=== PATIENT | female | born 1975 | race Caucasian/White ===

== ENCOUNTER 2020-04-02 03:52 | Emergency (ER) | payer BC, SELFPAY ==
--- NOTE | ~2020-04-02 | CT_ITS ---
EXAMINATION: CT thoracic lumbar w con DATE: 04/02/2020 07:21 INDICATION: Back pain. Fever. TECHNIQUE: Computed tomography (CT) of the thoracic and lumbar spine was performed with 100 mL Omnipa que 350 intravenous contrast. Automated exposure control and iterative reconstruction technique were employed. The dose-length product was 1963.22 mGy-cm. COMPARISON: None FINDINGS: CT THORACIC SPINE: A calcified right lung nodule and calcified right hilar and mediastinal lymph node s are consistent with old granulomatous disease. There is mediastinal lymphadenopathy. There is 12 de grees dextroscoliosis of thoracic spine. There is mild chronic anterior wedging of T4 and T5 vertebra l bodies. There is severely decreased disc height at T3-T4, moderately decreased disc height at T4-T5 , T5-T6, T6-T7, and T9-T10, and mildly decreased disc height at other levels. There is multilevel fac et joint osteoarthritis, severe bilaterally at T2-T3 and T3-T4. On the right, there is mild neural fo raminal stenosis at T2-T3 and moderate neural foraminal stenosis at T3-T4. On the left, there is mode rate neural foraminal stenosis at T2-T3. There is mild central canal stenosis at T6-T7. CT LUMBAR SPINE: There is 13 degrees levoscoliosis of lumbar spine. L5 is a transitional segment. Dante tebral body heights are normal. There is mildly decreased disc height at L4-L5. The following disc le vels are specifically discussed: L1-L2: The disc does not extend beyond the endplate margin. There is moderate bilateral facet joint o steoarthritis. There is no neural foraminal stenosis. There is no central canal stenosis. L2-L3: The disc is bulging. There is moderate bilateral facet joint osteoarthritis. There is mild lef t neural foraminal stenosis. There is mild central canal stenosis. L3-L4: The disc is bulging. There is moderate bilateral facet joint osteoarthritis. There is mild lef t neural foraminal stenosis. There is mild central canal stenosis. L4-L5: The disc is bulging. There is mild right and severe left facet joint osteoarthritis. There is mild right and moderate left neural foraminal stenosis. There is mild central canal stenosis. L5-S1: The disc does not extend beyond the endplate margin. There is mild bilateral facet joint osteo arthritis. There is mild bilateral neural foraminal stenosis. There is no central canal stenosis. IMPRESSION: 1. Moderate thoracic and lumbar spondylosis. 2. Scoliosis. 3. Mediastinal lymphadenopathy, which may be reactive or metastatic disease. Reviewed, dictated and finalized at location [facility].
--- NOTE | ~2020-04-02 | CT_ITS ---
EXAMINATION: CTA chest PE protocol DATE: 04/02/2020 07:15 INDICATION: Chest pain, back pain, fever TECHNIQUE: Computed tomography angiography (CTA) of the chest was performed with 100 mL Omnipaque-350 intravenous contrast timed to evaluate the pulmonary arteries. Coronal maximum intensity projection 3D-reconstructions were created by the technologist. Automated exposure control and iterative reconst ruction technique were employed. Exam dose: 980.42 mGy-cm total exam DLP. COMPARISON: None. FINDINGS: There is moderate contrast enhancement of the pulmonary arteries and no evidence of central , lobar or segmental pulmonary embolism. The more peripheral pulmonary arteries are not optimally dem onstrated. There is streak artifact from the contrast bolus. There is cardiomegaly. There is no pericardial effusion. No thoracic aortic aneurysm or dissection. No hilar or mediastinal mass lesion or lymphadenopathy. There are calcified right hilar and subcarinal nodes and calcified right lower lobe pulmonary granulo ma, consistent with old pulmonary granulomatous disease. There is mild atelectasis involving the middle and both lower lobes. Incidentally noted is cholelithiasis. Included skeletal structures are unremarkable. IMPRESSION: No evidence of pulmonary embolism Mild atelectasis at middle and both lower lobes Cholelithiasis Reviewed, dictated and finalized at [facility]. Reviewed, dictated and finalized at location [facility].
--- NOTE | ~2020-04-02 | CT_ITS ---
EXAMINATION: CT cervical spine wo con DATE: 04/02/2020 07:15 INDICATION: Back pain. TECHNIQUE: Computed tomography (CT) of the cervical spine was performed without intravenous contrast. Automated exposure control and iterative reconstruction technique were employed. The dose-length pro duct was 474.05 mGy-cm. COMPARISON: None FINDINGS: There is 8 degrees dextrocurvature of cervical spine. Vertebral body heights and interverte bral disc heights are normal. The following disc levels are specifically discussed: C2-C3: There is mild right uncovertebral joint osteoarthritis. There is no facet joint osteoarthritis . There is no neural foraminal stenosis. There is no central canal stenosis. C3-C4: There is mild left uncovertebral joint osteoarthritis. There is no facet joint osteoarthritis. There is no neural foraminal stenosis. There is no central canal stenosis. C4-C5: There is moderate right and mild left uncovertebral joint osteoarthritis. There is no facet jarrod int osteoarthritis. There is mild bilateral neural foraminal stenosis. There is no central canal sten osis. C5-C6: There is mild bilateral uncovertebral joint osteoarthritis. There is no facet joint osteoarthr itis. There is mild right neural foraminal stenosis. There is no central canal stenosis. C6-C7: There is no uncovertebral joint osteoarthritis. There is no facet joint osteoarthritis. There is no neural foraminal stenosis. There is no central canal stenosis. C7-T1: There is no uncovertebral joint osteoarthritis. There is severe bilateral facet joint osteoart hritis. There is mild bilateral neural foraminal stenosis. There is no central canal stenosis. IMPRESSION: 1. Mild cervical spondylosis. Reviewed, dictated and finalized at location [facility].
[2020-04-02 03:55] VITALS: BP 138/91; PULSE 108; RESP 18; TEMP 37.2; O2SAT 100
--- NOTE | 2020-04-02 04:05 | ED.BACK ---
HPI - Back Pain/Injury General Chief Complaint: Back Pain/Injury <Tamica Wright MD - Last Filed: 04/02/20 08:59> Stated Complaint: back pain <Tamica Wright MD - Last Filed: 04/02/20 08:59> Time Seen by Provider: 04/02/20 04:04 <Tamica Wright MD - Last Filed: 04/02/20 08:59> Source: patient <Tamica Wright MD - Last Filed: 04/02/20 08:59> Mode of arrival: ambulatory <Tamica Wright MD - Last Filed: 04/02/20 08:59> Limitations: no limitations <Tamica Wright MD - Last Filed: 04/02/20 08:59> History of Present Illness HPI Narrative: Patient is a 44-year-old female with a history of scoliosis who presents for evaluation of fever, chest pain, back pain. Patient reports that she had a 100.4 degree fever yesterday, has been experiencing upper back pain and chest pain over the past 48 hours. Patient has been unable to sleep due to the pain. She reports a dull, aching sensation over the chest, and upper back pain which is throbbing, aching in nature. She denies lower back pain. No difficulty with ambulation. No difficulty with bowel or bladder function. She denies numbness or weakness in the upper or lower extremities. No fever today. She denies cough, shortness of breath, she does have a history of palpitations but states she has not felt any palpitations today. No recent heavy lifting, falls or injuries. No recent sick contacts. Patient has been taking in anti-inflammatories and muscle relaxers at home without improvement in her symptoms. <Tamica Wright MD - Last Filed: 04/02/20 08:59> Related Data Allergies/Adverse Reactions: Allergies Allergy/AdvReac Type Severity Reaction Status Date / Time No Known Allergies Allergy Verified 04/02/20 08:21 <Tamica Wright MD - Last Filed: 04/02/20 08:59> Review of Systems Review of Systems: Narrative: CONSTITUTIONAL: Denies fever, chills, or sweats. ENT: Denies rhinorrhea, congestion, sore throat, or otalgia. CARDIOVASCULAR: Reports chest pain RESPIRATORY: Denies cough or dyspnea. GASTROINTESTINAL: Denies abdominal pain, nausea, vomiting, or diarrhea. GENITOURINARY: Denies dysuria or hematuria. SKIN: Denies rash or itching. MUSCULOSKELETAL: Reports back pain, shoulder myalgias NEUROLOGIC: Denies headache, numbness, or weakness. <Tamica Wright MD - Last Filed: 04/02/20 08:59> [facility] Past Medical History Medical History: Medical History Palpitations Scoliosis <Tamica Wright MD - Last Filed: 04/02/20 08:59> Social History Social History: Social History (Updated 04/02/20 @ 04:36 by Tamica Wright MD) Smoking status: Current every day smoker Tobacco type: cigarettes Alcohol intake: never Substance use: never Living arrangements: with family Gender identity (if verbalized by the patient): Female <Tamica Wright MD - Last Filed: 04/02/20 08:59> Exam Narrative: Exam Narrative: GENERAL: Awake, alert, conversant HEAD: Normocephalic, atraumatic. EYES: PERRLA and EOMI. ENT: Nares clear, no rhinorrhea or epistaxis. Mucous membranes moist. NECK: Supple. No midline cervical tenderness. Thorax: Left-sided paraspinal thoracic tenderness, no ecchymoses, no vesicles CHEST: No respiratory distress, breathing even and non labored, mild chest wall tenderness HEART: Regular rate, sinus rhythm ABDOMEN:Non distended, non tender EXTREMITIES: Normal range of motion. No edema. SKIN: Warm, dry, no rash. NEURO:No focal deficits. Alert and oriented x3 <Tamica Wright MD - Last Filed: 04/02/20 08:59> Course Reevaluation(s) Reevaluation #1: Reviewed CT results. Discussed with patient about her lab and CT results. Advised patient to have additional labs including repeat Troponin and inflammatory markers. Patient does not want to do any further tests, including additional labs and further imaging. She wants to leave and follo
--- NOTE | 2020-04-02 04:31 | ECG_ITS ---
Measurements Intervals [place] Rate: 99 P: 4 OR: 159 QRS: 10 QRSD: 88 T: 23 QT: 319 QTc: 409 Interpretive Statements SINUS RHYTHM LOW QRS VOLTAGE IN PRECORDIAL LEADS BASELINE ARTIFACT- V3 BORDERLINE ECG Electronically Signed On 04-02-2020 7:16:13 CDT by Pratik Hall D.O.
[2020-04-02] MEDS: ASPIRIN 81 MG CHEWABLE TABLET 324 MG PO (04:43)
[2020-04-02] MEDS: diazePAM (*CRX) 5 MG TABLET 2.5 MG PO (04:44)
[2020-04-02] MEDS: oxyCODONE/ACETAMINOPHEN (*CRX) 5-325 MG TABLET 1 TABLET PO (04:45)
[2020-04-02 05:20] LABS: Basophils Percent Auto 0.1 % (0.2-1.2); Eosinophils Absolute Auto 0.1 K/mm3 (0-0.3); Eosinophils Percent Auto 0.4 % (0-4.4); Hematocrit 41.4 % (37.0-47.0); Hemoglobin 13.8 g/dL (12.0-15.0); Immature Granulocyte Absolute 0.07 K/mm3 (0.00-0.031); Immature Granulocyte Percent A 0.5 % (0-0.5); Lymphocytes Absolute Auto 2.16 K/mm3 (0.9-3.2); Lymphocytes Percent Auto 14.5 % (18.3-44.2); Mean Corpuscular HGB Conc 33.3 g/dl (32-36); Mean Corpuscular Hemoglobin 30.7 pg (26-34); Mean Corpuscular Volume 92.2 fl (80-100); Monocytes Absolute Auto 1.2 K/mm3 (0.1-0.6); Neutrophils Absolute Auto 11.4 K/mm3 (1.3-6.7); Neutrophils Percent Auto 76.5 % (45.5-73.1); Platelet Count Result 268 k/mm3 (150-375); Red Blood Count 4.49 M/mm3 (4.2-5.4); Red Cell Distribution Width 13.7 % (11.5-14.5); White Blood Count 14.9 K/mm3 (4.5-10.0)
[2020-04-02 05:34] LABS: Anion Gap 9 mmol/L (8-16); Blood Urea Nitrogen 10 mg/dL (7-17); Calcium 9.7 mg/dL (8.4-10.2); Carbon Dioxide 24 mmol/L (22-30); Chloride 105 mmol/L (98-107); Estimated CRCL calculation 102 ml/min; Estimated Glomerular Filt Rate > 60; Glucose 132 mg/dL (65-105); Potassium 4.1 mmol/L (3.4-5.0); Sodium 138 mmol/L (137-145)
[2020-04-02 05:39] LABS: D Dimer 1.31 ug/mL (<0.48)
[2020-04-02 05:45] LABS: INR 1.1; Prothrombin Time 13.7 Seconds (11.1-14.7); Troponin I < 0.012 ng/mL (0.000-0.034)
[2020-04-02 05:46] LABS: Partial Thromboplastin Time 27.8 SECONDS (22.3-36.8)
[2020-04-02 09:33] VITALS: BP 126/78; PULSE 97; RESP 18; O2SAT 100
== END 2020-04-02 09:34 | disposition home or self-care (01) ==
PROVIDERS: Emergency Provider Emergency Medicine; PCP Emergency Medicine
DX: M62.830 Muscle spasm of back (principal); M54.6 Pain in thoracic spine; M41.9 Scoliosis, unspecified; F17.210 Nicotine dependence, cigarettes, uncomplicated; K80.20 Calculus of gallbladder without cholecystitis without obstruction; R94.31 Abnormal electrocardiogram [ECG] [EKG]
CPT/HCPCS: 36415; 71275; 72125; 72129; 72132; 80048; 81025; 84484; 85025; 85055; 85380; 85610; 85730; 93005; 99284; A9270; Q9967

== ENCOUNTER 2024-04-03 09:16 | Outpatient (CLI) | payer BC, SELFPAY ==
--- NOTE | ~2024-04-03 | MR_ITS ---
MRI of the left knee Clinical history: Pain Technique: Coronal proton density and proton density-weighted images, sagittal proton-density and T2 fat-sat images, and axial proton-density fat-saturated images were acquired. Findings: Anterior and posterior cruciate ligament are intact. Medial collateral ligament and the lat eral collateral ligament conflux are intact. Popliteus tendon intact. Medial and lateral menisci are intact, without evidence of tear. There is high-grade chondromalacia at the patellar apex and medial facet. There is patchy moderate to high-grade chondromalacia the femoral trochlea. There is moderate to high-grade chondromalacia of th e medial femoral condyle towards the joint line. Small tricompartmental osteophytes are present. Extensor mechanism is intact. No significant joint effusion or Amaro's cyst. Impression: [id number] tricompartmental degenerative change, as detailed above. Reviewed, dictated and finalized at [facility]. Impression: [id number] tricompartmental degenerative change, as detailed above.
== END 2024-04-03 09:17 | disposition home or self-care (01) ==
LOC: GOSHIMG 09:16
PROVIDERS: PCP Emergency Medicine; Visit Provider Orthopaedic Surgery
DX: M17.12 Unilateral primary osteoarthritis, left knee (principal)
CPT/HCPCS: 73721

== ENCOUNTER 2025-01-09 12:31 | Emergency (ER) | payer SELFPAY ==
[2025-01-09] VITALS (7 sets, daily range): BP systolic 122–160; BP diastolic 86–99; PULSE 90–112; RESP 16–20; TEMP 36.4; O2SAT 98–100
--- NOTE | ~2025-01-09 | CT_ITS ---
EXAMINATION: CTA chest PE protocol DATE: 01/09/2025 17:13 CDT INDICATION: Elevated d-dimer and tachycardia. TECHNIQUE: Computed tomographic angiography (CTA) of the chest was performed with 100 mL Omnipaque-35 0 intravenous contrast. The dose-length product was 856.74 mGy-cm. Maximum intensity projection 3D-re constructions of the aorta and other arteries were constructed by the technologist on a separate work station. COMPARISON: 04/02/2020 FINDINGS/OBSERVATIONS: PULMONARY ARTERIES: No filling defect is identified within the main or proximal pulmonary artery. The main pulmonary artery is not enlarged. THORACIC AORTA: No aneurysmal dilatation or dissection is present. The great vessels are intact LUNGS: 11 mm calcified nodule within the right lower lobe. The remainder the lungs are clear. MEDIASTINUM: No morphologically suspicious or pathologically enlarged lymph nodes are identified with in the mediastinum or bilateral axilla. Multiple morphologically benign appearing lymph nodes are identified within the retropectoral region bilaterally as well as the bilateral axilla, left greater than right. BONES OF THE CHEST: No acute fracture. No significant degenerative disease. No lytic or blastic lesions. HEART: The heart is of normal size, without pericardial effusion. IMPRESSION: No pulmonary embolus. No thoracic aortic dissection. Findings suggesting prior granulomatous disease. The lungs are otherwise clear. Reviewed, dictated and finalized at location A.
--- NOTE | ~2025-01-09 | US_ITS ---
EXAMINATION: US venous doppler LE RT DATE: 01/09/2025 16:22 INDICATION: Right leg pain TECHNIQUE: Grayscale ultrasound images without and with compression and Doppler ultrasound images of the right lower extremity veins were obtained. COMPARISON: None. FINDINGS: The visualized portions of right common femoral vein, profunda (deep) femoral vein, femoral vein, pop liteal vein, peroneal veins and posterior tibial veins are patent. Noncompressibility and limited flow are identified within the right greater saphenous vein located ap proximately 5 mm shy of the common femoral vein confluence. At the level of the popliteal vein, the right greater saphenous vein and demonstrates markedly thicke fabián haley suggesting possible acute on chronic thrombosis, for which clinical correlation with patien t's history is needed. IMPRESSION: Noncompressibility and limited flow within the right greater saphenous vein 5 mm away from the saphen ofemoral junction. These findings were discussed with Dr. Marshall at 4:30 PM on 01/09/2025 Reviewed, dictated and finalized at location A. IMPRESSION: Noncompressibility and limited flow within the right greater saphenous vein 5 m m away from the saphenofemoral junction. These findings were discussed with Dr. Marshall at 4:30 PM on 01/09/2025
--- OUTSIDE RECORDS SUMMARY | 2025-01-09 12:34 | XMS_ITS | Encounter Summary ---
Author Organization [facility] Address [address] [place] [address] Care Team Providers Care Bell Cleaner Name Role Phone Jennifer Mosquera NP Primary Care Provider [phone] Camron Cherry MD Primary Care Provider [phone] Encounter Details Date Type Department Care Team (Late st Contact Info) Description 08/07/2023 CBA PHARMA Message Enc [facility] Medical Group Family Medicine [facility] [address] [facility] [address] [place] [address] Jennifer Mosquera NP [address] [place] [address] Ct results Social History Tobacco Use Types Packs/Day Years Used Date Smoking Tobacco: Every Day Cigarettes 1 20 Passive Smoke Exposure: Never Smokeless Tobacco: Never Comments:PCP to deputy county counsel Alcohol Use Standard Drinks/Week Comments Yes 0 (1 standard drink = 0.6 oz pur e alcohol) socially PHQ-2 Answer Date Recorded Patient Health Questionnaire-2 Score 0 10/12/2022 Comments No Sex and Gender Information Value Date Recorded Sex Assigned at Female 10/21/2021 8:23 AM CDT Legal Sex Female 10:38 AM FIXTURE BUILDER Gender Identity Female 10/21/2021 8:23 AM CDT Sexual Orientation Straight 10/21/2021 8: 23 AM CDT documented as of this encounter Plan of Treatment Not on file documented as of this encounter Visit Diagnoses Not on filedocumented in this encounter Additional Health Concerns Infection Onset Date Last Indicated Resolved Time COVID-19 Rule Out 06/25/2024 06/25/202406/2506/25/2024 8:55 AM FIXTURE BUILDER documented as of this encounter Care Teams Bell Cleaner Relationship Specialty Start Date End Date Jennifer Mosquera NP [address] [place] [address] PCP - General NURSE PRACTITIONER 02/04/21 01/24/24 Camron Cherry MD [address] [place] [address] PCP - General 01/25/24 02/15/25 documented as of this encounter
--- OUTSIDE RECORDS SUMMARY | 2025-01-09 12:34 | XMS_ITS | Encounter Summary ---
Author Organization [facility] Address [address] [place] [address] Care Team Providers Care Character Impersonator Name Role Phone Camron Cherry MD Primary Care Provider [phone] Encounter Details Date Type Department Care Team (Late st Contact Info) Description 12/16/2024 Results Follow-Up [facility] Medical [facility] Family Medicine - [place] [phone] Camron Cherry MD [address] [place] [id number] [facility] DUP[facility] LOW EXT RT Social History Tobacco Use Types Packs/Day Years Used Date Smoking Tobacco: Every Day Cigarettes 1 20 Started: 1995 Passive Smoke Exposure: Never Smokeless Tobacco: Never Comments:PCP to mortgage loan counselor Alcohol Use Standard Drinks/Week Comments Yes 0 (1 standard drink = 0.6 oz pur e alcohol) socially PHQ-2 Answer Date Recorded Patient Health Questionnaire-2 Score 0 06/25/2024 Comments No Sex and Gender Information Value Date Recorded Sex Assigned at Female 10/21/2021 8:23 AM CDT Legal Sex Female 10:38 AM TUBE MAN Gender Identity Female 10/21/2021 8:23 AM CDT Sexual Orientation Straight 10/21/2021 8: 23 AM CDT documented as of this encounter Plan of Treatment Not on file documented as of this encounter Visit Diagnoses Not on filedocumented in this encounter Care Teams Character Impersonator Relationship Specialty Start Date End Date Camron Cherry MD [address] [place] [id number] PCP - General 01/25/24 02/15/25 documented as of this encounter
--- OUTSIDE RECORDS SUMMARY | 2025-01-09 12:34 | XMS_ITS | Encounter Summary ---
Author Organization [facility] Address [address] [place] [address] Care Team Providers Care Quote Clerk Name Role Phone Jennifer Mosquera NP Primary Care Provider [phone] Camron Cherry MD Primary Care Provider Encounter Details Date Type Department Care Team (Late st Contact Info) Description 10/13/2023 Payfirma Message Enc [facility] Medical Group Family Medicine [address] [address] [place] Provider Breast Screening Social History Tobacco Use Types Packs/Day Years Used Date Smoking Tobacco: Every Day Cigarettes 1 20 Passive Smoke Exposure: Never Smokeless Tobacco: Never Comments:PCP to food counselor Alcohol Use Standard Drinks/Week Comments Yes 0 (1 standard drink = 0.6 oz pur e alcohol) socially PHQ-2 Answer Date Recorded Patient Health Questionnaire-2 Score 0 10/12/2022 Comments No Sex and Gender Information Value Date Recorded Sex Assigned at Female 10/21/2021 8:23 AM CDT Legal Sex Female 10:38 AM MAGAZINE FEEDER Gender Identity Female 10/21/2021 8:23 AM CDT Sexual Orientation Straight 10/21/2021 8: 23 AM CDT documented as of this encounter Plan of Treatment Not on file documented as of this encounter Visit Diagnoses Not on filedocumented in this encounter Additional Health Concerns Infection Onset Date Last Indicated Resolved Time COVID-19 Rule Out 06/25/2024 06/25/2024 06/25/2024 8:55 AM MAGAZINE FEEDER documented as of this encounter Care Teams Quote Clerk Relationship Specialty Start Date End Date Jennifer Mosquera NP [address] [place] [address] PCP - General NURSE PRACTITIONER 02/04/21 01/24/24 Camron Cherry MD [address] [place] [address] PCP - General 01/25/24 02/15/25 documented as of this encounter
--- OUTSIDE RECORDS SUMMARY | 2025-01-09 12:34 | XMS_ITS | Encounter Summary ---
Author Organization [facility] Address [address] [place] [address] Care Team Providers Care Supervisor Melt House Name Role Phone Jennifer Mosquera NP Primary Care Provider [phone] Camron Cherry MD Primary Care Provider [phone] Encounter Details Date Type Department Care Team (Late st Contact Info) Description 03/03/2022 [email or web address] Message Enc [facility] Medical Group Family Medicine [facility] [address] [facility] [address] [place] [address] Jennifer Mosquera NP [address] [facility] [address] [place] [address] Covid Social History Tobacco Use Types Packs/Day Years Used Date Smoking Tobacco: Every Day Cigarettes 1 20 Smokeless Tobacco: Never Comments:PCP to reimbursement counselor Alcohol Use Standard Drinks/Week Comments Yes 0 (1 standard drink = 0.6 oz pur e alcohol) socially PHQ-2 Answer Date Recorded PHQ-2 Score - If the patient scores above 3, please move on to questions 3-9 0 02/16/2022 Comments No Sex and Gender Information Value Date Recorded Sex Assigned at Female 10/21/2021 8:23 AM CDT Legal Sex Female 10:38 AM MAIN GALLEY SCULLION Gender Identity Female 10/21/2021 8:23 AM CDT Sexual Orientation Straight 10/21/2021 8: 23 AM CDT COVID-19 Exposure Response Date Recorded In the last 10 days, have yo u been in contact with someone who was confirmed or suspected to have Coronavirus/COVID-19? No / Unsure 02/16/2022 9:29 AM CDT documented as of this encounter Plan of Treatment Not on file documented as of this encounter Visit Diagnoses Not on filedocumented in this encounter Additional Health Concerns Infection Onset Date Last Indicated Resolved Time COVID-19 Rule Out 06/25/2024 06/25/2024 06/25/2024 8:55 AM MAIN GALLEY SCULLION documented as of this encounter Care Teams Supervisor Melt House Relationship Specialty Start Date End Date Jennifer Mosquera NP [address] [place] [address] PCP - General NURSE PRACTITIONER 02/04/21 01/24/24 Camron Cherry MD [address] [place] [address] PCP - General 01/25/24 02/15/25 documented as of this encounter
--- OUTSIDE RECORDS SUMMARY | 2025-01-09 12:34 | XMS_ITS | Encounter Summary ---
Author Organization [facility] Address [address] [place] [address] Care Team Providers Care Job Development Specialist Name Role Phone Rudy Sutton MD Primary Care Provider Jennifer Li NP Primary Care Provider [phone] Camron Cherry MD Primary Care Provider [phone] Encounter Details Date Type Department Care Team (Late st Contact Info) Description 08/30/2020 [employer] Message Enc [facility] Medical Group Family Medicine [address] [address] Rudy Sutton MD RE: Question Social History Tobacco Use Types Packs/Day Years Used Date Smoking Tobacco: Every Day Cigarettes 0.5 15 Smokeless Tobacco: Never Alcohol Use Standard Drinks/Week Comments Never 0 (1 standard drink = 0.6 oz pur e alcohol) Comments Unknown Sex and Gender Information Value Date Recorded Sex Assigned at Female 10/21/2021 8:23 AM CDT Legal Sex Female 10:38 AM SUPERVISOR AGRICULTURAL EDUCATION Gender Identity Female 10/21/2021 8:23 AM CDT Sexual Orientation Straight 10/21/2021 8: 23 AM CDT COVID-19 Exposure Response Date Recorded In the last month, have you been in contact with someone who was confirmed or suspected to have Coronavirus / COVID-19? No / Unsure 08/10/2020 10:18 AM SUPERVISOR AGRICULTURAL EDUCATION documented as of this encounter Plan of Treatment Not on file documented as of this encounter Visit Diagnoses Not on filedocumented in this encounter Additional Health Concerns Infection Onset Date Last Indicated Resolved Time COVID-19 Rule Out 06/25/2024 06/25/2024 06/25/2024 8:55 AM SUPERVISOR AGRICULTURAL EDUCATION documented as of this encounter Care Teams Job Development Specialist Relationship Specialty Start Date End Date Rudy Sutton MD PCP - General FAMILY MEDICINE SPORTS MEDICINE 06/29/20 02/03/21 Jennifer Mosquera NP [address] [place] [address] PCP - General NURSE PRACTITIONER 02/04/21 01/24/24 Camron Cherry MD [address] [place] [address] PCP - General 01/25/24 02/15/25 documented as of this encounter
--- OUTSIDE RECORDS SUMMARY | 2025-01-09 12:34 | XMS_ITS | Encounter Summary ---
Author Organization [facility] Address [address] [place] [address] Care Team Providers Care Animal Shelter Worker Name Role Phone Rudy Sutton MD Primary Care Provider Jennifer Li NP Primary Care Provider [phone] Camron Cherry MD Primary Care Provider [phone] Encounter Details Date Type Department Care Team (Late st Contact Info) Description 06/30/2020 [employer] Message Enc [facility] Medical Group Family Medicine [address] [address] Rudy Sutton MD RE: Follow Up/Update Social History Tobacco Use Types Packs/Day Years Used Date Smoking Tobacco: Every Day Cigarettes 0.5 15 Smokeless Tobacco: Never Alcohol Use Standard Drinks/Week Comments Never 0 (1 standard drink = 0.6 oz pur e alcohol) Comments Unknown Sex and Gender Information Value Date Recorded Sex Assigned at Female 10/21/2021 8:23 AM CDT Legal Sex Female 10:38 AM BELT LINE FEEDER Gender Identity Female 10/21/2021 8:23 AM CDT Sexual Orientation Straight 10/21/2021 8: 23 AM CDT COVID-19 Exposure Response Date Recorded In the last month, have you been in contact with someone who was confirmed or suspected to have Coronavirus / COVID-19? No / Unsure 06/29/2020 7:50 PM BELT LINE FEEDER documented as of this encounter Plan of Treatment Not on file documented as of this encounter Visit Diagnoses Not on filedocumented in this encounter Additional Health Concerns Infection Onset Date Last Indicated Resolved Time COVID-19 Rule Out 06/25/2024 06/25/202406/25/2024 8:55 AM BELT LINE FEEDER documented as of this encounter Care Teams Animal Shelter Worker Relationship Specialty Start Date End Date Rudy Sutton MD PCP - General FAMILY MEDICINE SPORTS MEDICINE 06/29/20 02/03/21 Jennifer Mosquera NP [address] [place] [address] PCP - General NURSE PRACTITIONER 02/04/21 01/24/24 Camron Cherry MD [address] [place] [address] PCP - General 01/25/24 02/15/25 documented as of this encounter
--- OUTSIDE RECORDS SUMMARY | 2025-01-09 12:34 | XMS_ITS | Encounter Summary ---
Author Organization [facility] Address [address] [place] [address] Care Team Providers Care Pool Servicer Name Role Phone Camron Cherry MD Primary Care Provider [phone] Encounter Details Date Type Department Care Team (Late st Contact Info) Description 10/21/2024 VUELOGIC Message Enc [facility] Family Medicine - [place] [address] [place] [address] [phone] Camron Cherry MD [address] [place] [address] [phone] Sickness Social History Tobacco Use Types Packs/Day Years Used Date Smoking Tobacco: Every Day Cigarettes 1 20 Started: 1994 Passive Smoke Exposure: Never Smokeless Tobacco: Never Comments:PCP to prevocational/rehabilitation counselor Alcohol Use Standard Drinks/Week Comments Yes 0 (1 standard drink = 0.6 oz pur e alcohol) socially PHQ-2 Answer Date Recorded Patient Health Questionnaire-2 Score 0 06/25/2024 Comments No Sex and Gender Information Value Date Recorded Sex Assigned at Female 10/21/2021 8:23 AM CDT Legal Sex Female 10:38 AM TRACE EVIDENCE TECHNICIAN Gender Identity Female 10/21/2021 8:23 AM CDT Sexual Orientation Straight 10/21/2021 8: 23 AM CDT documented as of this encounter Plan of Treatment Not on file documented as of this encounter Visit Diagnoses Not on filedocumented in this encounter Care Teams Pool Servicer Relationship Specialty Start Date End Date Camron Cherry MD [address] [place] [id number] PCP - General 01/25/24 02/15/25 documented as of this encounter
--- OUTSIDE RECORDS SUMMARY | 2025-01-09 12:34 | XMS_ITS | Encounter Summary ---
Author Organization [facility] Address [address] [place] [address] Care Team Providers Care Web Design Specialist Name Role Phone Jennifer Mosquera NP Primary Care Provider [phone] Camron Cherry MD Primary Care Provider [phone] Encounter Details Date Type Department Care Team (Late st Contact Info) Description 11/11/2021 [employer] Message Enc [facility] Family Medicine [facility] [address] [facility] [address] [place] [address] Jennifer Mosquera NP [address] [place] [address] Sickness Social History Tobacco Use Types Packs/Day Years Used Date Smoking Tobacco: Every Day Cigarettes 1 20 Smokeless Tobacco: Never Comments:PCP to children counselor Alcohol Use Standard Drinks/Week Comments Never 0 (1 standard drink = 0.6 oz pur e alcohol) PHQ-2 Answer Date Recorded PHQ-2 Score - If the patient scores above 3, please move on to questions 3-9 1 02/03/2021 Comments No Sex and Gender Information Value Date Recorded Sex Assigned at Female 10/21/2021 8:23 AM CDT Legal Sex Female 10:38 AM CERTIFIED OPHTHALMIC TECHNOLOGIST Gender Identity Female 10/21/2021 8:23 AM CDT Sexual Orientation Straight 10/21/2021 8: 23 AM CDT COVID-19 Exposure Response Date Recorded In the last 10 days, have yo u been in contact with someone who was confirmed or suspected to have Coronavirus/COVID-19? No / Unsure 11/11/2021 5:06 PM CDT documented as of this encounter Plan of Treatment Not on file documented as of this encounter Visit Diagnoses Not on filedocumented in this encounter Additional Health Concerns Infection Onset Date Last Indicated Resolved Time COVID-19 Rule Out 06/25/2024 06/25/2024 06/25/2024 8:55 AM CERTIFIED OPHTHALMIC TECHNOLOGIST documented as of this encounter Care Teams Web Design Specialist Relationship Specialty Start Date End Date Jennifer Mosquera NP [address] [place] [address] PCP - General NURSE PRACTITIONER 02/04/21 01/24/24 Camron Cherry MD [address] [place] [address] PCP - General 01/25/24 02/15/25 documented as of this encounter
--- OUTSIDE RECORDS SUMMARY | 2025-01-09 12:34 | XMS_ITS | Encounter Summary ---
Author Organization [facility] Address [address] [place] [address] Care Team Providers Care Mold Preparer Name Role Phone Camorn Cherry MD Primary Care Provider [phone] Encounter Details Date Type Department Care Team (Late st Contact Info) Description 07/22/2024 Loandesk Message [facility] Family Medicine - [place] [phone] Camron Cherry MD [address] [place] [address] [phone] Blood work Social History Tobacco Use Types Packs/Day Years Used Date Smoking Tobacco: Every Day Cigarettes 1 20 Started: 1994 Passive Smoke Exposure: Never Smokeless Tobacco: Never Comments:PCP to health counselor Alcohol Use Standard Drinks/Week Comments Yes 0 (1 standard drink = 0.6 oz pur e alcohol) socially PHQ-2 Answer Date Recorded Patient Health Questionnaire-2 Score 0 06/25/2024 Comments No Sex and Gender Information Value Date Recorded Sex Assigned at Female 10/21/2021 8:23 AM CDT Legal Sex Female 10:38 AM RENEWABLE ENERGY ENGINEER Gender Identity Female 10/21/2021 8:23 AM CDT Sexual Orientation Straight 10/21/2021 8: 23 AM CDT documented as of this encounter Progress Notes * Ashely Coker MA - 07/22/2024 1:17 PM CST Will you review patients' lab results please? WABLE ENERGY ENGINEER documented in this encounter Plan of Treatment Not on file documented as of this encounter Visit Diagnoses Not on filedocumented in this encounter Care Teams Mold Preparer Relationship Specialty Start Date End Date Camron Cherry MD [address] [place] [address] PCP - General 01/25/24 02/15/25 documented as of this encounter
--- OUTSIDE RECORDS SUMMARY | 2025-01-09 12:34 | XMS_ITS | Encounter Summary ---
Author Organization [facility] Address [address] [place] [address] Care Team Providers Care Waiter/Waitress First Class Name Role Phone Camron Cherry MD Primary Care Provider [phone] Encounter Details Date Type Department Care Team (Late st Contact Info) Description 02/21/2024 [employer] Message Enc [facility] Family Medicine - [place] [phone] Camron Cherry MD [address] [place] [address] [phone] Ortho referral Social History Tobacco Use Types Packs/Day Years Used Date Smoking Tobacco: Every Day Cigarettes 1 20 Started: 1994 Passive Smoke Exposure: Never Smokeless Tobacco: Never Comments:PCP to psychosocial rehabilitation counselor Alcohol Use Standard Drinks/Week Comments Yes 0 (1 standard drink = 0.6 oz pur e alcohol) socially PHQ-2 Answer Date Recorded Patient Health Questionnaire-2 Score 0 01/25/2024 Comments No Sex and Gender Information Value Date Recorded Sex Assigned at Female 10/21/2021 8:23 AM CDT Legal Sex Female 10:38 AM PHARMACOVIGILANCE SPECIALIST Gender Identity Female 10/21/2021 8:23 AM CDT Sexual Orientation Straight 10/21/2021 8: 23 AM CDT documented as of this encounter Plan of Treatment Not on file documented as of this encounter Visit Diagnoses Not on filedocumented in this encounter Additional Health Concerns Infection Onset Date Last Indicated Resolved Time COVID-19 Rule Out 06/25/2024 06/25/2024 06/25/2024 8:55 AM PHARMACOVIGILANCE SPECIALIST documented as of this encounter Care Teams Waiter/Waitress First Class Relationship Specialty Start Date End Date Camron Cherry MD [address] [place] [address] PCP - General 01/25/24 02/15/25 documented as of this encounter
--- OUTSIDE RECORDS SUMMARY | 2025-01-09 12:35 | XMS_ITS | Clinical Summary ---
Author Organization [facility] Address [address] [place] [address] Care Team Providers Care Welding Manager Name Role Phone Claude Pitts MD Primary Care Provider [phone] Allergies No known active allergies Medications tiZANidine (ZANAFLEX) 4 mg tablet Take 4 mg by mouth every 6 (six) hours as needed Active aspirin 81 mg enteric coated tablet Take 81 mg by mouth daily Active buPROPion SR (ZYBAN) 150 mg 12 hr tablet Take 150 mg by mouth 2 (two) times a day Active celecoxib (CeleBREX) 200 mg capsule Take 200 mg by mouth 2 (two) times a day Active irbesartan (AVAPRO) 300 mg tablet Take 300 mg by mouth nightly Active clonazePAM (KlonoPIN) 0.5 mg tablet Take 0.5 mg by mouth 2 (two) times a day Active Active Problems Problem Noted Date Diagnosed Date Varicose veins of both lower extremities with pa in 03/04/2020 Surgical History Surgery Date Site/Laterality Comments SECTION Medical History Medical History Date Comments HTN (hypertension) Anxiety Depression Scoliosis DDD (degenerative disc disease), lumbar Neuropathy Family History Medical History Relation Name Comments Liver disease Father Diabetes Mother Hypertension Mother Relation Name Status Comments Father Mother Social History Tobacco Use Types Packs/Day Years Used Date Smoking Tobacco: Every Day Comments Unknown Sex and Gender Information Value Date Recorded Sex Assigned at Not on file Legal Sex Female 10:49 AM CDT Gender Identity Not on file Sexual Orientation Not on file Obstetrics History Last Filed Vital Signs Vital Sign Reading Time Taken Comments Blood Pressure 154/99 03/04/2020 8:47 AM CDT Pulse 68 03/04/2020 8:47 AM CDT Temperature - - Respiratory Rate - - Oxygen Saturation - - Inhaled Oxygen Concentration - - Weight 98.9 kg (218 lb) 03/04/2020 8:47 AM CDT Height 165.1 cm (5' 5) 03/04/2020 8:47 AM CDT Body Mass Index 36.28 03/04/2020 8:47 AM CDT Plan of Treatment Not on file Insurance [facility] Care Teams Welding Manager Relationship Specialty Start Date End Date Claude Pitts MD [address] [place] [address] PCP - General Family Medicine 02/20/20
--- OUTSIDE RECORDS SUMMARY | 2025-01-09 12:35 | XMS_ITS | Encounter Summary ---
Author Organization [facility] Address [address] [place] [address] Care Team Providers Care Chemical Lab Supervisor Name Role Phone Jennifer Mosquera NP Primary Care Provider [phone] Camron Cherry MD Primary Care Provider [phone] Encounter Details Date Type Department Care Team (Late st Contact Info) Description 10/12/2021 [employer] Message Enc [facility] Family Medicine [facility] [address] [facility] [address] [place] [address] Jennifer Mosquera NP [address] [place] [address] [place] [address] Toenail Social History Tobacco Use Types Packs/Day Years Used Date Smoking Tobacco: Every Day Cigarettes 1 20 Smokeless Tobacco: Never Comments:The provider can pr ovide you with more information about quitting. 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 No / Unsure 10/10/2021 9:30 PM CDT documented as of this encounter Plan of Treatment Not on file documented as of this encounter Visit Diagnoses Not on filedocumented in this encounter Additional Health Concerns Infection Onset Date Last Indicated Resolved Time COVID-19 Rule Out 06/25/2024 06/25/2024 06/25/2024 8:55 AM LASTING MACHINE OPERATOR documented as of this encounter Care Teams Chemical Lab Supervisor Relationship Specialty Start Date End Date Jennifer Mosquera NP [address] [place] [address] PCP - General NURSE PRACTITIONER 02/04/21 01/24/24 Camron Cherry MD [address] [place] [address] PCP - General 01/25/24 02/15/25 documented as of this encounter
--- OUTSIDE RECORDS SUMMARY | 2025-01-09 12:35 | XMS_ITS | Encounter Summary ---
Author Organization [facility] Address [address] [place] [address] Care Team Providers Care Airline Mechanic Name Role Phone Jennifer Mosquera NP Primary Care Provider [phone] Camron Cherry MD Primary Care Provider [phone] Encounter Details Date Type Department Care Team (Late st Contact Info) Description 04/23/2021 [employer] Message Enc [facility] Family Medicine [facility] [address] [facility] [address] [place] [id number] Jennifer Mosquera NP [address] [place] [address] [place], [place] [id number] Monitor/ test results Social History Tobacco Use Types Packs/Day [...] AM CDT Legal Sex Female 10:38 AM INFANTRY WEAPONS CREWMEMBER Gender Identity Female 10/21/2021 8:23 AM CDT Sexual Orientation Straight 10/21/2021 8: 23 AM CDT COVID-19 Exposure Response Date Recorded In the last month, have you been in contact with someone who was confirmed or suspected to have Coronavirus / COVID-19? No / Unsure 04/19/2021 5:38 PM INFANTRY WEAPONS CREWMEMBER documented as of this encounter Plan of Treatment Not on file documented as of this encounter Visit Diagnoses Not on filedocumented in this encounter Additional Health Concerns Infection Onset Date Last Indicated Resolved Time COVID-19 Rule Out 06/25/2024 06/25/2024 06/25/2024 8:55 AM INFANTRY WEAPONS CREWMEMBER documented as of this encounter Care Teams Airline Mechanic Relationship Specialty Start Date End Date Jennifer Mosquera NP [address] [place] [address] PCP - General NURSE PRACTITIONER 02/04/21 01/24/24 Camron Cherry MD [address] [place] [address] PCP - General 01/25/24 02/15/25 documented as of this encounter
--- OUTSIDE RECORDS SUMMARY | 2025-01-09 12:35 | XMS_ITS | Clinical Summary ---
Author Organization [facility] Address [address] [place] [address] Care Team Providers Care Police Worker Name Role Phone Camron Cherry MD Primary Care Provider [phone] Allergies No known active allergies Medications aspirin EC 81 MG tablet Take 1 tablet (81 mg total) by mouth daily. Active loratadine (CLARITIN) 10 MG tablet Take 1 tablet (10 mg total) by mouth daily. Active tiZANidine (ZANAFLEX) 4 MG tabletIndicatio ns:Muscle spasm TAKE 1 TABLET(4 MG) BY MOUTH TWICE DAILY NEEDED 90 tablet 08/25/19 24 Active Additional Information Patient not taking.Reported on 01/25/2024 albuterol sulfate HFA 108 (90 Base) MCG/ACT inhalerIndicati ons:Allergic rhinitis, unspecified seasonality, unspecified trigger Inhale 2 puffs into the lungs every 4 (four) hours as needed. 8 g 1 06/25/19 25 Active clonazePAM (KLONOPIN) 1 MG tabletIndicatio ns:Anxiety with flying TAKE 1 TABLET(1 MG) BY MOUTH DAILY NEEDED FOR ANXIETY 30 tablet 09/12/19 25 Active irbesartan (AVAPRO) 300 MG tabletIndicatio ns:Hypertension , unspecified type TAKE 1 TABLET(300 MG) BY MOUTH DAILY 90 tablet 11/30/19 25 Active AIRSUPRA 90-80 MCG/ACT Aerosol INHALE 2 PUFFS EVERY 4 HOURS 10/23/19 25 Active doxycycline monohydrate 100 MG capsule Take 1 capsule (100 mg total) by mouth 2 (two) times daily. 10/22/19 25 Active DULoxetine (CYMBALTA) 60 MG capsuleIndicati ons:Anxiety TAKE 1 CAPSULE(60 MG) BY MOUTH DAILY 90 capsule 12/18/19 Active DULoxetine (CYMBALTA) 60 MG capsuleIndicati ons:Anxiety TAKE 1 CAPSULE(60 MG) BY MOUTH DAILY 90 capsule 09/12/19 25 025 Discontinued Active Problems Problem Noted Date Diagnosed Date Adnexal mass 08/09/2023 Boils of multiple sites 04/19/2021 Palpitations 04/19/2021 Panic attacks 02/04/2021 Depression, unspecified depression type 02/05/20 Prediabetes 02/04/2021 Cigarette smoker 02/04/2021 Obesity (BMI 30-39.9) 02/04/2021 Chronic bilateral thoracic back pain 06/30/2020 Anxiety 06/30/2020 Chronic granulomatous disease (CMS/HCC HHS/HCC) 06/30/2020 Varicose veins of both lower extremities with pa in 03/04/2020 Bulging lumbar disc 06/29/2014 Osteoarthritis 06/29/2004 Degenerative disc disease, thoracic 06/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 Scoliosis 06/29/1985 Resolved Problems Problem Noted Date Diagnosed Date Resolved Date Positive colorectal cancer s creening using Cologuard test 12/01/2022 08/09/2023 Overview (12/01/2022): Added automatically from request for surgery [id number] Encounters Date Type Department Care Team Description 12/16/2024 2:54 PM CDT - 12/16/2024 11:59 PM CDT Hospital Encounter [facility] [place] [address] Camron Cherry MD Discharge Disposition: Home or Self Care (Routine Discharge) 12/16/2024 9:20 AM CDT Office Visit [address] [phone] Camron Cherry MD Leg Pain (Patient is present for possible blood in her leg) 12/16/2024 Results Follow-Up [address] [phone] Camron Cherry MD USV FRANCHESKA DUPLEX LOW EXT RT 12/16/2024 Travel 11/25/2024 Scan [facility] Scanned, [facility] 10/21/2024 Epiphytet Message Enc [facility] Family Medicine - [employer] [phone] Camron Cherry MD Sickness from Last 3 Months Immunizations Immunization Administration Dates Next Due Influenza (Generic) 03/02/2015 PFIZER COVID-19 (ORIGINAL FO RMULATION, PURPLE CAP) mRNA, LNP-S, PF, 30 MCG/0.3 ML DOSE 04/27/2021,09/17/2020,08/27/2020 Pneumococcal (Pneumovax 23) 02/04/2021 Pneumococcal (Prevnar 13) 10/12/2022 Tdap (Boostrix) 01/21/2022 Family History Medical History Relation Comments Heart Disease Father Hypertension Father Kidney Disease Father Stroke Maternal Grandfather No Known Problems Maternal Grandmother Arthritis Mother Hypertension Mother No Known Problems Paternal Grandfather No Known Problems Paternal Grandmother Relation Status Comments Father Maternal Grandfather Maternal Grandmother Mother Paternal Grandfather Paternal Grandmother Social History Tobacco Use Types Packs/Day Years Used Date Smoking Tobacco: Every Day Cigarettes 1 20 Started: 1994 Passive Smoke Exposure: Never Smokeless Tobacco: Never Tobacco Cessation:Ready to Q uit: No; Counseling Given: No Comments:PCP to residential counselor Alcohol Use Standard Drinks/Week Comments Yes 0 (1 standard drink = 0.6 oz pur e alcohol) socially PHQ-2 Answer Date Recorded Patient Health Questionnaire-2 Score 0 06/25/2024 Comments No Sex and Gender Information Value Date Recorded Sex Assigned at Female 10/21/2021 8:23 AM CDT Legal Sex Female 10:38 AM [employer] Gender Identity Female 10/21/2021 8:23 AM CDT Sexual Orientation Straight 10/21/2021 8: 23 AM CDT Last Filed Vital Signs Vital Sign Reading Time Taken Comments Blood Pressure 114/88 12/16/2024 9:35 AM CDT Pulse 97 12/16/2024 9:35 AM CDT Temperature 37.2 C (99 F) 12/16/2024 9:35 AM CDT Respiratory Rate 20 07/25/2023 1:09 PM [employer] Oxygen Saturation 100% 12/16/2024 9:35 AM CDT Inhaled Oxygen Concentration - - Weight 116.4 kg (256 lb 9.6 oz) 12/16/2024 9:35 AM CDT Height 165.1 cm (5' 5) 07/25/2023 1:09 PM [employer] Body Mass Index 42.7 07/25/2023 1:09 PM [employer] Plan of Treatment Health Maintenance Due Date Last Done Comments Hepatitis B Vaccines (1 of 3 - 19+ 3-dose series) 1993 Zoster Vaccines (1 of 2) 1993 Cervical Cancer Screening Pa p with HPV Testing (Age 30 to 64) Every 5 Years 2004 Mammogram Screening 2014 Cervical Cancer Screening Pa p Smear (Age 30 to 64) Every 3 Years 09/29/2023 09/28/2020 Cervical Cancer Screening with HPV 09/29/2023 Annual Physical 10/13/2023 10/12/2022, 09/28/2020 COVID-19 Vaccine (4 - 2023-2 5 season) 2024 04/27/2021, 09/17/2020, 08/27/2020 Lung Cancer Screening 2024 10/01/2020 Pneumococcal Vaccine: 50+ Years (3 of 3 - PPSV23, PCV20 or PCV21) 02/04/2026 10/12/2022, 02/04/2021 DTaP, Tdap and Td Vaccines ( 2 - Td or Tdap) 01/22/2032 01/21/2022 Colorectal Cancer Screening Colonoscopy (10 Years) 01/06/2033 01/06/2023 Hepatitis C Completed 09/29/2020 Colorectal Cancer Screening FIT-DNA (3 Years) Discontinued 11/02/2022, 11/02/2022 PHQ-2 (Physician [place]) Completed 06/25/2024 Meningococcal B Vaccine Aged Out No l onger eligible based on patient's age to complete this topic Meningococcal Vaccine Aged Out No javi alejandra eligible based on patient's age to complete this topic RSV Immunizations Under 20 Months Aged Out No longer eligible based on patient's age to complete this topic Procedures Procedure Name Priority Date/Time Associated Diagnosis Comments USV FRANCHESKA DUPLEX LOW EXT RT STAT 12/16/2024 3:17 PM CDT Localized swelling of right lower extremity COLOGUARD ([employer]ACT SCI[employer]) Routine 11/02/2022 7:20 AM CDT Screen for colon cancer CT CHEST WO CON Routine 10/01/2020 7:42 AM CDT Chronic cough HEPATITIS C ANTIBODY W/RFX TO HCV RNA Routine 09/29/2020 9:20 AM CDT CYTOPATH CERV/VAG THIN LAYER Routine 09/28/2020 7:24 AM CDT from Last 3 Months or Most Recently Relevant to Health Maintenance Results * USV FRANCHESKA DUPLEX LOW EXT RT (12/16/2024 3:17 PM CDT) Anatomical Region Laterality Modality Extremity Vascular Ultraso und 12/16/2024 2:57 PM CDT Narrative 12/16/2024 4:52 PM CDT VENOUS DUPLEX IMAGING RIGHT LOWER EXTREMITY VASCULAR LAB Pat.Name: CAROL CARBAJAL Pat.ID: [id number] St.Date: 12/16/2024 Refer.MD: Camron Cherry Exam Time: 2:57:00 PM Study Type:KIRILL VS Venous Duplex Leg Rt Age: 6 1975,49Y Sex: F Sonogrphr: Dedrick Hicks RDMS, RVT History / Clinical:rle swelling Procedures: Quispe scale, Color Doppler imaging, Doppler Spectral Analysis Race: W ++++++++++++++++++++++++++++++++++++ SUMMARY: ++++++++++++++++++++++++++++++++++++ Right leg: There are NO apparent, deep or superficial vein, ACUTE character venous filling defects visualized in the femoral, popliteal, deep calf or proximal saphenous veins. Resting venous flow is normal phasic proximally. There is an acute superficial venous thrombus seen in a varicose branch arising from the right greater saphenous veins at the knee level. Left leg LIMITED: There are NO apparent, deep vein, ACUTE character venous filling defects visualized in the common femoral veins. Resting venous flow is normal phasic at the common femoral. CONCLUSION: No evidence of acute deep vein thrombosis seen in the right lower extremity and the contralateral left common femoral vein. Acute superficial venous thrombus seen in a varicose branch arising from the right greater saphenous veins at the knee level. <Electronic Signature> 12/16/2024 04:52 PM Juliana Guadarrama M.D. Procedure Note Juliana Guadarrama MD - 12/16/2024 VENOUS DUPLEX IMAGING RIGHT LOWER EXTREMITY VASCULAR LAB Pat.Name: CAROL CARBAJAL Pat.ID: [id number] .Date: 12/16/2024 Refer.MD: Camron Cherry Exam Time: 2:57:00 PM Study Type:KIRILL VS Venous Duplex Leg Rt Age: 6 1975,49Y Sex: F Sonogrphr: Dedrick Hicks RDMS, RVT History / Clinical:rle swelling Procedures: Quispe scale, Color Doppler imaging, Doppler Spectral Analysis Race: W ++++++++++++++++++++++++++++++++++++ SUMMARY: ++++++++++++++++++++++++++++++++++++ Right leg: There are NO apparent, deep or superficial vein, ACUTE character venous filling defects visualized in the femoral, popliteal, deep calf or proximal saphenous veins. Resting venous flow is normal phasic proximally. There is an acute superficial venous thrombus seen in a varicose branch arising from the right greater saphenous veins at the knee level. Left leg LIMITED: There are NO apparent, deep vein, ACUTE character venous filling defects visualized in the common femoral veins. Resting venous flow is normal phasic at the common femoral. CONCLUSION: No evidence of acute deep vein thrombosis seen in the right lower extremity and the contralateral left common femoral vein. Acute superficial venous thrombus seen in a varicose branch arising from the right greater saphenous veins at the knee level. <Electronic Signature> 12/16/2024 04:52 PM Juliana Sun, M.D. Camron Cherry MD [facility] Final Result * (ABNORMAL) COLOGUARD ([employer]) (11/02/2022 7:20 AM CDT) COLOGUARD RESULT Positive( A) Negative [facility] (CLIA #:[id number]) Comment: POSITIVE TEST RESULT. A positive Cologuard result should be followed with a colonoscopy or visual examination of the colon. The normal value (reference range) for this assay is negative. TEST DESCRIPTION: Composite algorithmic analysis of stool DNA-biomarkers with hemoglobin immunoassay. Quantitative values of individual biomarkers are not reportable and are not associated with individual biomarker result reference ranges. Cologuard is intended for colorectal cancer screening of adults of either sex, 45 years or older, who are at average-risk for colorectal cancer (CRC). Cologuard has been approved for use by the U.S. FDA. The performance of Cologuard was established in a cross sectional study of average-risk adults aged 50-84. Cologuard performance in patients ages 45 to 49 years was estimated by sub-group analysis of near-age groups. Colonoscopies performed for a positive result may find as the most clinically significant lesion: colorectal cancer [4.0%], advanced adenoma (including sessile serrated polyps greater than or equal to 1cm diameter) [20%] or non- advanced adenoma [31%]; or no colorectal neoplasia [45%]. These estimates are derived from a prospective cross-sectional screening study of 10,000 individuals at average risk for colorectal cancer who were screened with both Cologuard and colonoscopy. (Larry Nazario al, N Engl J Med 2014;370(14):7908-2053.) Cologuard may produce a false negative or false positive result (no colorectal cancer or precancerous polyp present at colonoscopy follow up). A negative Cologuard test result does not guarantee the absence of CRC or advanced adenoma (pre-cancer). The current Cologuard screening interval is every 3 years. ([place] [employer] [employer] and U.S. Multi-Society Task Force). Cologuard performance data in a 10,000 patient pivotal study using colonoscopy as the reference method can be accessed at the following location: www.exactlabs.com/results. Additional description of the Cologuard test process, warnings and precautions can be found at www.colMilabrard.com. STOOL STOOL SPECIMEN / Unknown 11/02/2022 7:20 AM CDT 11/03/2022 10:46 PM CDT Jennifer Mosquera DENTAL HYGIENIST MOBILE COORDINATOR BODY FLUIDS AND STOOLS OR DERABLES Final Result [facility] ([employer] [address] [facility]) [address] [place] [address], [facility] (CLIA #:[id number]) [address] [place] [address] * CT CHEST WO CON (10/01/2020 7:42 AM CDT) Anatomical Region Laterality Modality Chest Computed Tomogra phy 10/02/2020 3:15 PM CDT Impressions 10/02/2020 3:22 PM CDT IMPRESSION: 1. No evidence of significant acute or chronic lung disease. 2. Sequelae of prior granulomatous pulmonary infection. 3. Right middle lobe atelectasis or scarring. 4. Order artery disease. 5. Suspect cholelithiasis. Referred By: KARINA CISSE Interpreted By: Edy Zepeda MD, 10/02/2020 3:15 PM Narrative 10/02/2020 3:22 PM CDT Examination: CT CHEST WO CON Clinical history: Chronic cough Comparison: None DATE/TIME: 10/01/2020 7:35 AM Technique: Multiplanar images of the chest were obtained. A dose lowering technique was used for this procedure, which may include, but is not limited to, dose reduction technique, automated exposure control, the use of iterative reconstruction, and ALARA (As Low As Reasonably Achievable) / Image Gently techniques. Findings: Heart size normal. No pericardial effusion. Thoracic aorta is normal caliber. Calcified mediastinal and right hilar lymph nodes. No worrisome lymphadenopathy. Few scattered coronary artery calcifications indicating coronary artery disease. Calcified granuloma right lower lobe. Small area of linear atelectasis or scarring in the right middle lobe. Additional small areas of atelectasis in the lower lobes and lingula. No evidence of pneumonia or pulmonary edema. No pleural effusion or pneumothorax. No evidence of diffuse interstitial lung disease or emphysema. There is cholelithiasis with a stone in gallbladder neck, versus mural calcifications the gallbladder neck. Calcified granulomas in the spleen. No acute osseous abnormality. Thoracic spondylosis. Procedure Note Edy Zepeda MD - 10/02/2020 Examination: CT CHEST WO CON Clinical history: Chronic cough Comparison: None DATE/TIME: 10/01/2020 7:35 AM Technique: Multiplanar images of the chest were obtained. A dose loweringtechnique was used for this procedure, which may include, but is notlimited to, dose reduction technique, automated exposure control, the useof iterative reconstruction, and ALARA (As Low As Reasonably Achievable) /Image Gently techniques. Findings: Heart size normal. No pericardial effusion. Thoracic aorta isnormal caliber. Calcified mediastinal and right hilar lymph nodes. Noworrisome lymphadenopathy. Few scattered coronary artery calcificationsindicating coronary artery disease. Calcified granuloma right lower lobe. Small area of linear atelectasis orscarring in the right middle lobe. Additional small areas of atelectasisin the lower lobes and lingula. No evidence of pneumonia or pulmonaryedema. No pleural effusion or pneumothorax. No evidence of diffuseinterstitial lung disease or emphysema. There is cholelithiasis with a stone in gallbladder neck, versus muralcalcifications the gallbladder neck. Calcified granulomas in the spleen.No acute osseous abnormality. Thoracic spondylosis. IMPRESSION: 1. No evidence of significant acute or chronic lung disease. 2. Sequelae of prior granulomatous pulmonary infection. 3. Right middle lobe atelectasis or scarring. 4. Order artery disease. 5. Suspect cholelithiasis. Referred By: KARINA CISSE Interpreted By: Edy Zepeda MD, 10/02/2020 3:15 PM us Karina Cisse MD CT Final Result * HEPATITIS C ANTIBODY W/RFX TO HCV RNA (09/29/2020 9:20 AM CDT) HEPATITIS C AB NON-REACTI VE NON-REACT JOSTIN [facility] SIGNAL TO CUTOFF 0.19 <[address] [facility] Comment: HCV antibody was non-reactive. There is no laboratory evidence of HCV infection. In most cases, no further action is required. However, if recent HCV exposure is suspected, a test for HCV RNA (test code 35652) is suggested. For additional information please refer to http://education.ensembli/faq/LDQ82i2 (This link is being provided for informational/ educational purposes only.) 09/29/2020 9:20 AM CDT 09/29/2020 9:26 AM CDT Narrative [facility] - 10/09/2020 5:18 PM CDT FASTING:YES FASTING: YES us Morteza Bass MD LABORATORY Final Result Performing Organization Address City/State/[facility] Co de Phone Number [facility] [address] [place] [address] * Cytopath Cerv/Vag Thin Layer (09/28/2020 7:24 AM CDT) Pathologist [facility] THIN PREP PAP [address] [phone] Department of Pathology Pathology Report CERVICAL/VAGINAL PAP SMEAR REPORT Name: CAROL CARBAJAL Age: 6 1975 (Age: 44) Location: [facility] Sex: F Collected Date: 09/28/2020 Hospital #: [id number] Date Received: 09/30/2020 Date Reported: 10/05/2020 Provider: MORTEZA BASS MD INTERPRETATION CERVICAL/ENDOCERVI KINSEY: SATISFACTORY FOR EVALUATION. ENDOCERVICAL/TRANS FORMATION ZONE COMPONENT PRESENT. NEGATIVE FOR INTRAEPITHELIAL LESION OR MALIGNANCY. NEGATIVE FOR HIGH RISK HPV. The FDA approved Aptima HPV assay is an in vitro nucleic acid amplification test for the qualitative detection of E6/E7 viral messenger RNA (mRNA) from 14 high-risk types of human papillomavirus (HPV) in cervical specimens. The high-risk HPV types detected by the assay include: 16,18,31,33,35,39, 45,51,52,56,58,59, 66, and 68. Electronically Signed Out By TRISTA Garcia (ASCP) CLINICAL HISTORY Z11.51 SCREENING PAP TEST ThinPrep Pap Test with HR HPV testing in patient > 30 years requested. Date of Last Menstrual Period: 09/14/20 Menstrual Status: Regular SPECIMEN SUBMITTED CERVICAL/ENDOCERVI KINSEY Specimen Received:1 Thin Prep Vial, Image Assisted Pap (SMD) Please note: The Pap smear is not a diagnostic test. It is a screening test. Negative results on combined screening (Pap test and HPV-DNA) have a high negative predictive value (99.1-100 percent) for cervical cancer. The pap test is not effective in detecting cervical adenocarcinoma. [facility] 09/28/2020 7:24 AM CDT 09/30/2020 7:24 AM CDT Comment:CERVICAL/ENDOCERVICA L Morteza Bass MD PATHOLOGY/CYTOLOGY ORDERABLES nal Result [facility] [address] [place] [address], [place] [phone] [id number] [facility] [address] [place] [address], [place] [phone] from Last 3 Months or Most Recently Relevant to Health Maintenance Insurance [facility] Care Teams Police Worker Relationship Specialty Start Date End Date Camron Cherry MD [address] [place] [address] PCP - General 01/25/24 02/15/25
--- NOTE | 2025-01-09 14:11 | ED.EXTPRO ---
HPI - Extremity Problem General Chief complaint: Extremity Problem,Nontraumatic Stated complaint: leg pain Time Seen by Provider: 01/09/25 13:56 History of Present Illness HPI Narrative: This is a 49-year-old female with history of DVTs, anxiety who presents to the ED for concerns for DVT. Patient states that couple months ago, she was diagnosed with a superficial clot to her right lower leg that is being managed conservatively. She states that this morning, she noticed a knot in her right lateral thigh that she was concerned maybe expansion of her DVT. Denies chest pain, shortness of breath. Related Data Home Medications ?Medication ?Instructions ?Recorded ?Confirmed ?Last Taken ?Type aspirin 81 mg tablet,delayed 81 mg PO DAILY 03/26/24 04/09/24 Unknown History release duloxetine 60 mg capsule,delayed 60 mg PO DAILY 03/26/24 04/09/24 Unknown History release irbesartan 300 mg tablet 300 mg PO DAILY 03/26/24 04/09/24 Unknown History loratadine 10 mg tablet (Claritin) 10 mg PO DAILY 03/26/24 04/09/24 Unknown History Allergies Allergy/AdvReac Type Severity Reaction Status Date / Time No Known Allergies Allergy Verified 01/09/25 14:09 Review of Systems Review of Systems: Gen.: Denies fevers or chills Eyes: Denies eye pain or visual change ENT: Denies congestion Respiratory: Denies shortness of breath or cough CV: Denies chest pain or palpitations GI: Denies abdominal pain nausea, emesis or diarrhea denies burning, urgency, frequency or hematuria Musculoskeletal: Denies back pain or muscle pain Neuro: Denies numbness, tingling, weakness or focal weakness Skin: Denies rash Except as documented, all other systems reviewed and negative [facility] Past Medical History Medical History History of blood clots Arthritis Anxiety Palpitations Scoliosis Surgical History Surgical History delivery delivered 2000 Family History Family History Mother Asthma Depression Father Heart disease Social History Social History Smoking status: Current every day smoker Tobacco type: cigarettes Alcohol intake: current Substance use: never Do You Feel Safe in your Home?: Yes Lack of Transportation: No Lack of Food: Never True Current Housing: I Have Housing Concerned About Future Housing: No Difficulty Paying Gas/Electric Bills: No Difficulty Paying for Meds: No Currently Unemployed: No Education: High School Diploma/GED Difficulty w/ Childcare or Family Care: No Living arrangements: with family Gender identity (if verbalized by the patient): Female Exam Narrative: APPEARANCE: No acute distress, nontoxic, resting in bed EYES: EOMI HEENT: Normocephalic, atraumatic, OMM RESPIRATORY: No respiratory distress Clear to auscultation bilaterally with no rhonchi wheezing or rales. CARDIOVASCULAR: Regular rate and rhythm without murmurs rubs or gallops. ABDOMINAL: Soft, nontender, nondistended, no rebound or guarding MUSCULOSKELETAl: Moves all extremities. No clubbing, cyanosis or edema. NEURO: Awake and alert. Following commands, speech normal, no focal deficits SKIN:: Firm nodules approximately 1 x 1 cm to the right lateral thigh, right medial thigh, right medial calf, negative Homans sign. PSYCHIATRIC: Normal affect/mood, Course Vital Signs Vital signs: Vital Signs Temperature 97.5 F L 01/09/25 12:34 Pulse Rate 112 H 01/09/25 12:34 Respiratory Rate 18 01/09/25 12:34 Blood Pressure 138/99 H 01/09/25 12:34 Pulse Oximetry 100 01/09/25 12:34 Oxygen Delivery Room Air 01/09/25 12:34 Temperature 97.5 F L 01/09/25 12:34 Pulse Rate 92 01/09/25 15:31 Respiratory Rate 20 01/09/25 15:31 Blood Pressure 160/86 H 01/09/25 17:10 Pulse Oximetry 100 01/09/25 17:11 Oxygen Delivery Room Air 01/09/25 12:34 MDM - Extremity (Nontraumatic) MDM Narrative Medical decision making narrative: 49-year-old female presenting to the ED for concerns for DVT. She did have multiple palpable nodules to right lower extremity that could be consistent with superficial thrombi. To obtain initial D-dimer that was positive so right lower extremity venous Doppler and CTA chest were obtained. Doppler did reveal evidence of a DVT. CTA chest showed no evidence of PE. Patient will be started on Xarelto. She was advised follow-up with her PCP next week for re-evaluation. Patient was agreeable to plan. Given strict precautions. Differential Diagnosis Differential diagnosis: Likely deep vein thrombosis of lower extremity and other (PE, muscle spasm, nodule) Lab Data Attestation: I reviewed the patient's lab results. 01/09/25 14:32 01/09/25 14:32 Labs: Lab Results 01/09/25 Range/Units 14:32 WBC 9.7 (4.5-10.0) K/mm3 RBC 4.51 (4.2-5.4) M/mm3 Hgb 13.5 (12.0-15.0) g/dL Hct 41.8 (37.0-47.0) % MCV 92.7 (80-100) fl MCH 29.9 (26-34) pg MCHC 32.3 (32-36) g/dl RDW 14.2 (11.5-14.5) % Plt Count 337 (150-375) k/mm3 MPV 9.5 (7.4-10.4) fl Immature Gran % (Auto) 0.3 (0-0.5) % Neut % (Auto) 59.5 (45.5-73.1) % Lymph % (Auto) 29.9 (18.3-44.2) % Swisher % (Auto) 6.6 (2.6-8.5) % Eos % (Auto) 3.1 (0-4.4) % Baso % (Auto) 0.6 (0.2-1.2) % Lymph # (Auto) 2.91 (0.9-3.2) K/mm3 Swisher # (Auto) 0.6 (0.1-0.6) K/mm3 Eos # (Auto) 0.3 (0-0.3) K/mm3 Baso # (Auto) 0.1 (0.0-0.1) K/mm3 Abs Immat Gran (auto) 0.03 (0.00-0.031) K/mm3 Absolute Neuts (auto) 5.8 (1.3-6.7) K/mm3 Absolute Nucleated RBC 0.000 (0.0-0.012) K/mm3 Nucleated RBC % 0.0 (0.0-0.2) % D-Dimer 1.68 H (<0.48) ug/mL Sodium 139 (137-145) mmol/L Potassium 4.4 (3.4-5.0) mmol/L Chloride 105 (98-107) mmol/L Carbon Dioxide 24 (22-30) mmol/L Anion Gap 10 (4-12) mmol/L BUN 11 (7-17) mg/dL Creatinine 0.75 (0.7-1.0) mg/dL Estim Creat Clear Calc 98 ml/min Estimated GFR > 60 (59 - ) Glucose 113 H (65-110) mg/dL Calcium 10.1 (8.4-10.2) mg/dL Serum HCG, Qual Negative Imaging Data Radiologist's impression: RLE Venous Doppler: IMPRESSION: Noncompressibility and limited flow within the right greater saphenous vein 5 mm away from the saphenofemoral junction. CTA Chest: IMPRESSION: No pulmonary embolus. No thoracic aortic dissection. Findings suggesting prior granulomatous disease. The lungs are otherwise clear. Discharge Plan Discharge Clinical Impression: Deep vein thrombosis of lower extremity Qualifiers: Affected thrombotic vein of extremity: other lower extremity vein Chronicity: acute Laterality: right Qualified Code(s): I82.491 - Acute embolism and thrombosis of other specified deep vein of right lower extremity Patient Disposition: Home Condition: Stable Instructions: Antibiotic Form, Deep Vein Thrombosis (ED) Additional Instructions: Take xarelto as prescribed. Follow up with PCP in the next week for reevaluatoin. Patient Language: [place] Prescriptions: New Xarelto DVT-PE Treat 30d Start 15 mg (42)- 20 mg (9) tablets,dose pack See Rx Instructions .ROUTE .COMPLEX Qty: 51 0RF Rx Instructions: take one-15 mg tablet twice daily for 21 days, then one-20 mg tablet once daily; must take with meal/food No Action irbesartan 300 mg tablet 300 mg PO DAILY duloxetine 60 mg capsule,delayed release(DR/EC) 60 mg PO DAILY aspirin 81 mg tablet,delayed release (DR/EC) 81 mg PO DAILY loratadine [Claritin] 10 mg tablet 10 mg PO DAILY Follow-up/Referrals: PHYSICIAN NOT ON STAFF,NONSTAFF [Non-Staff] -
[2025-01-09 14:49] LABS: Hematocrit 41.8 % (37.0-47.0); Hemoglobin 13.5 g/dL (12.0-15.0); Immature Granulocyte Percent A 0.3 % (0-0.5); Lymphocytes Absolute Auto 2.91 K/mm3 (0.9-3.2); Mean Corpuscular HGB Conc 32.3 g/dl (32-36); Mean Corpuscular Hemoglobin 29.9 pg (26-34); Mean Corpuscular Volume 92.7 fl (80-100); Nucleated Red Blood Cells Absolute Auto 0.000 K/mm3 (0.0-0.012); Nucleated Red Blood Cells Perc 0.0 % (0.0-0.2); Platelet Count Result 337 k/mm3 (150-375); Red Blood Count 4.51 M/mm3 (4.2-5.4); White Blood Count 9.7 K/mm3 (4.5-10.0)
--- OUTSIDE RECORDS SUMMARY | 2025-01-09 14:49 | XMS_ITS | Clinical Summary ---
Author Organization [facility] ([facility] at the [facility] Address [address] [place] [address] Care Team Providers [employer] Name Role Phone Claude Pitts MD Primary Care Provider + [phone] Allergies No known active allergies Medications tiZANidine [...] Plan of Treatment Not on file Insurance [facility] Care Teams [employer] Relationship Specialty Start Date End Date Claude Pitts MD [address] [place] [address] PCP - General Family Medicine 02/20/20
[2025-01-09 15:00] LABS: Anion Gap 10 mmol/L (4-12); Blood Urea Nitrogen 11 mg/dL (7-17); Calcium 10.1 mg/dL (8.4-10.2); Carbon Dioxide 24 mmol/L (22-30); Chloride 105 mmol/L (98-107); Estimated CRCL calculation 98 ml/min; Estimated Glomerular Filt Rate > 60; Glucose 113 mg/dL (65-110); Potassium 4.4 mmol/L (3.4-5.0); Sodium 139 mmol/L (137-145)
--- NOTE | 2025-01-09 15:00 | PC.NURSE ---
Report given to SEGUNDO Fry
[2025-01-09 15:03] LABS: SPREG INTERNAL CONTROL Positive; Serum Qual hCG Negative
[2025-01-09] MEDS: APIXABAN 5 MG TABLET 10 MG PO (17:43)
== END 2025-01-09 17:56 | disposition home or self-care (01) ==
PROVIDERS: Emergency Provider Student in an Organized Health Care Education/Training Program
DX: I82.491 Acute embolism and thrombosis of other specified deep vein of right lower extremity (principal); M19.90 Unspecified osteoarthritis, unspecified site; M41.9 Scoliosis, unspecified; F41.9 Anxiety disorder, unspecified; F17.210 Nicotine dependence, cigarettes, uncomplicated; R91.1 Solitary pulmonary nodule; Z79.82 Long term (current) use of aspirin; Z79.899 Other long term (current) drug therapy
CPT/HCPCS: 36415; 71275; 80048; 84703; 85025; 85380; 93971; 99284; A9270; Q9967